=== PATIENT | male | born 1930 | race Caucasian/White ===

== ENCOUNTER → 2017-01-05 | Outpatient (CLI) | payer MEDICARE ==
[2017-01-05 13:45] LABS: BILIRUBIN,URINE Negative (Negative); CLARITY,URINE Clear; COLOR,URINE Yellow; GLUCOSE, URINE (UA) Negative (Negative); LEUKOCYTE ESTERASE ,URINE Negative (Negative); PH,URINE 5.5 (5.0 - 8.0); UROBILINOGEN,URINE 0.2 mg/dL (0.2-1.0)
[2017-01-05 13:53] LABS: BASOPHILS % (AUTO) 0 % (0-2); EOSINOPHILS # (AUTO) 0.4 10^3uL; EOSINOPHILS % (AUTO) 6 % (0-4); LYMPHOCYTES # (AUTO) 1.9 X10^3; MEAN CORPUSCULAR HGB CONC 32.5 g/dL (31.0-37.0); MEAN CORPUSCULAR VOLUME 95 FL (80-100); MEAN PLATELET VOLUME 10.3 FL (6.0-9.5); MONOCYTES # (AUTO) 0.4 X10^3; MONOCYTES % (AUTO) 5 % (3-11); NEUTROPHILS # (AUTO) 4.3 X10^3; NEUTROPHILS % (AUTO) 61 % (51-67); PLATELET COUNT 194 10^3uL (150-450); WHITE BLOOD COUNT 7.01 10^3uL (4.0-11.0)
[2017-01-05 14:25] LABS: URINE CENTRIFUGED VOLUME 12 mL
[2017-01-05 14:52] LABS: ALBUMIN 3.7 g/dL (3.4-5.0); ANION GAP 16.3 MEQ/L (3-15); CALCULATED IONIZED CALCIUM 4.5 mg/dL (3.8-4.6); TOTAL PROTEIN 6.7 g/dL (6.4-8.5)
[2017-01-09 18:22] LABS: P-ANCA 31 U/mL (0-99)
== END ==
LOC: LAB 13:02
PROVIDERS: ATTEND Internal Medicine Nephrology
DX: N39.0 Urinary tract infection, site not specified (principal); N18.4 Chronic kidney disease, stage 4 (severe); M31.31 Wegener's granulomatosis with renal involvement; E11.9 Type 2 diabetes mellitus without complications
CPT/HCPCS: 36415; 80053; 81003; 81015; 85025; 86021